=== PATIENT | female | born 1985 | race Caucasian/White ===

== ENCOUNTER → 2018-05-25 15:11 | Outpatient (CLI) | payer BC, SELFPAY ==
[2018-05-25 17:32] LABS: Progesterone Level 0.19 ng/mL (See Comment)
[2018-05-25 17:35] LABS: hCG Titer Quant., Serum < 1 mIU/mL (<9 non-preg)
[2018-05-25 17:38] LABS: Estradiol 46.3 pg/mL
[2018-05-27 10:18] LABS: DHEA Sulfate 66.7 ug/dL (84.8-378.0)
--- OUTSIDE RECORDS SUMMARY | 2018-07-20 14:25 | XMS RPT_ITS ---
:1985 Author Organization [facility] Support Name Relationship Address Phone RAMESH ALEJO JR Unavailable Unavailable + [facility] Unavailable [address] + [place] [address] ALEJORAMESH Unavailable [address] + [place] [address] [facility] Unavailable [address] + [facility] [place] [address] MELORAMESH Unavailable [address] + [facility] [place] [address] RAMESH ALEJO Unavailable [address] + [place] [address] RAMONITA LOZANO Unavailable COUSIN + RAMESH ALEJO JR Unavailable Unavailable + RAMONITA LOZANO Unavailable COUSIN + RAMESH ALEJO JR Unavailable Unavailable + RAMONITA LOZANO Unavailable COUSIN + RAMESH ALEJO JR Unavailable Unavailable + RAMONITA LOZANO Unavailable COUSIN + RAMESH ALEJO JR Unavailable Unavailable + RAMONITA LOZANO Unavailable COUSIN + RAMESH ALEJO JR Unavailable Unavailable + RAMONITA LOZANO Unavailable COUSIN + RAMESH ALEJO JR Unavailable Unavailable + RAMESH ALEJO Unavailable Unavailable + RAMESH IRVIN Unavailable Unavailable Unavailable Care Team Providers Name Role Phone ROME CLINTON DO Admitting Unavailable CLINTONROME GREGORY DO Attending Unavailable ROME CLINTON DO Primary Care Unavailable NO, DOCTOR ON Consulting Unavailable NO, DOCTOR ON Referring Unavailable ANH CHAVES PA-C Attending Unavailable GEORGE GIBSON Primary Care Unavailable Figueredo-Amos, [facility] Attending Unavailable VINCE(MV), ANH Attending Unavailable VINCE(MV), ANH Referring Unavailable VINCE(MV), ANH Attending Unavailable VICNE(MV), ANH Referring Unavailable VINCE(MV), ANH Attending Unavailable VINCE(MV), ANH Attending Unavailable VINCE(MV), ANH Referring Unavailable VINCE(MV), ANH Primary Care Unavailable VINCE(MV), ANH Referring Unavailable VINCE(MV), ANH Primary Care Unavailable VINCE(MV), ANH Attending Unavailable VINCE(MV), ANH Referring Unavailable VINCE(MV), ANH Primary Care Unavailable VINEC(MV), ANH Admitting Unavailable ANSELMO RENO Attending Unavailable VINCE(MV), ANH Referring Unavailable VINCE(MV), ANH Primary Care Unavailable PROBLEMS PROBLEMS DATE TYPE CONDITION / CODE ATTENDING STATUS SOURCE 05/31/2018 Unknown 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 Repository 03/15/2018 Working GENERALIZED ANXIETY ANASTACIO, Active [place] diagnosis DISORDER / [facility] F41.1(ICD-10) Hospital Repository 03/15/2018 Working OBESITY, ANASTACIO, Active [place] diagnosis UNSPECIFIED / [facility] E66.9(ICD-10) Hospital Repository 02/13/2018 Unknown Abnormal weight VINCE([facility]), Active [place] gain / [facility] R63.5(ICD-10) System Repository 02/13/2018 Unknown Body mass index VINCE([facility]), Active [place] (bmi) 60.0-69.9, [facility] adult ([facility]) / System Z68.44(ICD-10) Repository 02/13/2018 Unknown Obesity, VINCE([facility]), Active [place] unspecified / [facility] E66.9(ICD-10) System Repository 02/13/2018 Unknown Cardiac murmur, V[facility]CE([facility]), Active [place] unspecified / [facility] R01.1(ICD-10) System Repository 02/13/2018 Unknown Other fatigue / VINCE([facility]), Active [place] R53.83(ICD-10) [facility] System Repository 10/05/2017 Unknown Body mass index VINCE([facility]), Active [place] (bmi) 50-59.9 , [facility] adult ([facility]) / System Z68.43(ICD-10) Repository 09/13/2017 Unknown Generalized anxiety VINCE([facility]), Active [place] disorder / [facility] F41.1(ICD-10) System Repository PROCEDURES PROCEDURES No Procedure Records FoundRESULTS RESULTS TESTOSTERONE, SERUM TOTAL Collected: 05/25/2018 Status: F Source: [place] 3:13 PM [facility] REPOSITORY TYPE CODE TESTS RESULT OUT OF REFERENCE UNITS RANGE LAB L509.3000 ng/dL Testosterone Normal 23.29 Result Comment: NORMAL REFERENCE RANGES MALE AGE <50 123.06 - 813.86 ng/dL MALE AGE >50 89.98 - 780.10 ng/dL FEMALE PREMENOPAUSE AGE 21 - 60 9.01 - 47.94 ng/dL FEMALE POSTMENOPAUSE AGE 45 - 89 <7.00 - 45.62 ng/dL REFERENCE RANGE AND METHODOLOGY CHANGED 06/14/2017 Performed By: #### L509.3000, L509.4001 #### [facility] [place], [address] PROGESTERONE LEVEL Collected: 05/25/2018 Status: F Source: [place] 3:13 PM [facility] REPOSITORY TYPE CODE TESTS RESULT OUT OF REFERENCE UNITS RANGE LAB L509.4001 See Comment ng/mL Progesterone Normal 0.19 Result Comment: Progesterone Reference Table: UNITS Female: Follicular 0.15 - 1.40 ng/mL Luteal 3.34 - 25.56 ng/mL Mid-luteal 4.44 - 28.03 ng/mL Postmenopausal 0.0 - 0.73 ng/mL : 1st Trimester 11.22 - 90.00 ng/mL 2nd Trimester 25.55 - 89.40 ng/mL 3rd Trimester 48.40 -422.50 ng/mL Performed By: #### L509.3000, L509.4001 #### [facility] [address] [place] [place], [address] HCG TITER QUANT., Collected: 05/25/2018 Status: F Source: [place] 3:13 PM [facility] REPOSITORY TYPE CODE TESTS RESULT OUT OF RANGE REFERENCE UNITS LAB L700.8000 <9 non-preg mIU/mL Normal HCG < 1 QUANT. Performed By: #### L700.8000 #### [facility] [address] [place], [address] ESTRADIOL Collected: 05/25/2018 Status: F Source: [place] 3:13 PM [facility] REPOSITORY TYPE CODE TESTS RESULT OUT OF RANGE REFERENCE UNITS LAB L3300.1750 pg/mL Normal ESTRADIOL 46.3 Result Comment: NORMAL REFERENCE RANGES FEMALE FOLLICULAR 21.4 - 164.8 pg/mL MID-CYCLE PEAK 49.9 - 367.2 pg/mL LUTEAL 40.2 - 259.0 pg/mL POST-MENOPAUSAL ON MHT <11.0 - 462.1 pg/mL NOT ON MHT <11.0 - 58.3 pg/mL MALE <11.0 - 52.5 pg/mL NOTE: [facility] HAS CONFIRMED THE DRUG FULVETRANT (FASLODEX) MAY CAUSE FALSELY ELEVATED ESTRADIOL RESULTS WHEN USING THIS TEST METHOD. IF PATIENT IS TAKING FULVESTRANT AN ALTERNATIVE METHOD SHOULD BE USED TO DETERMINE ESTRADIOL CONCENTRATION. Performed By: #### L3300.1750 #### [facility] [address] [place], [address] DHEA SULFATE Collected: 05/25/2018 Status: F Source: [place] 3:13 PM [facility] REPOSITORY Order Comment: Has Patient had Radioactive Injection for X-ray?: N TYPE CODE TESTS RESULT OUT OF RANGE REFERENCE UNITS LAB L3300.1500 84.8-378.0 ug/dL Low DHEA SULF 66.7 4020 Result Comment: Performed at: - [facility] [address] [id number] Drainlayer: Dyu Leach PhD, Phone: [phone] Performed By: #### L3300.1500 #### [facility] (refer to report for specific site) refer to report for address and phone number CBC WITH DIFFERENTIAL Collected: 02/14/2018 Status: F Source: [place] 8:00 AM [facility] REPOSITORY TYPE CODE TESTS RESULT OUT OF REFERENCE UNITS RANGE LAB WBC(LOINC) 4.3-10.3 x10 3/uL WBC 4.3 LAB RBC(LOINC) 3.60-5.20 x10 6/uL RBC 4.51 LAB [id number](L 11.7-15.8 g/dL OINC) HGB 12.1 LAB 03642649(L 33.6-46.8 % OINC) HCT 37.5 LAB MCV2(LOINC 80.2-99.0 fL ) MCV 83.1 LAB MCH(LOINC) 27.5-32.3 pg Low MCH 26.8 LAB MCHC2(LOIN 30.7-35.5 g/dl C) MCHC 32.3 LAB RDW(LOINC) 11.5-14.5 % RDW 14.4 LAB [id number](L 150.0-400.0 x10 3/uL OINC) PLATELET 282.0 LAB POLY(LOINC % ) NEUTROPHIL 54.8 LAB POLY#(LOIN 2.4-6.6 10 3/uL C) Low ABSOLUTE NEUT 2.3 LAB LYMP(LOINC % ) LYMPHOCYTE 34.6 LAB LYMP#(LOIN 1.2-3.3 10 3/uL C) ABSOLUTE LYMPH 1.5 LAB MONO(LOINC % ) MONOCYTE 7.8 LAB MONO#(LOIN 0.2-0.6 10 3/uL C) ABSOLUTE MONO 0.3 LAB EOSO(LOINC % ) EOSINOPHIL 2.6 LAB EOSO#(LOIN 0.1-0.3 10 3/uL C) ABSOLUTE EOSIN 0.1 LAB BASO(LOINC % ) BASOPHIL 0.2 LAB BASO#(LOIN 0.0-0.1 10 3/uL C) ABSOLUTE BASO 0.0 Performed By: #### [id number] #### [place] [address] METABOLIC PANEL Collected: 02/14/2018 Status: F Source: [place] 8:00 [facility] REPOSITORY TYPE CODE TESTS RESULT OUT OF REFERENCE UNITS RANGE LAB [id number](L 135-147 mmol/L OINC) SODIUM 139 LAB [id number](L 3.6-5.1 mmol/L OINC) POTASSIUM 4.6 LAB [id number](L 96-109 mmol/L OINC) CHLORIDE 108 LAB [id number](L 22-30 mmol/L OINC) CO2 24 LAB 07776527(L 65-100 mg/dL OINC) GLUCOSE-SERUM 97 LAB 52702700(L 8-20 mg/dL OINC) BUN 12 LAB [id number](L 0.52-1.04 mg/dL OINC) CREATININE 0.65 LAB [id number](L 6.3-8.2 g/dL OINC) TOTAL PROTEIN 6.3 LAB [id number](L 3.5-5.0 g/dL OINC) Low ALBUMIN 3.4 LAB [id number](L 24-126 U/L OINC) ALK PHOS 85 LAB [id number](L 4-35 U/L OINC) ALT 19 Result Comment: New reference range for Alanine Aminotransferase (ALT) LAB 89675652(LOINC) 3-47 U/L AST 18 LAB 50015615(LOINC) 8.4-10.4 mg/dL CALCIUM 8.6 LAB [id number](LOINC) 0.2-1.6 mg/dL TOTAL BILIRUBIN 0.4 Performed By: #### [id number] #### [place] [address] LIPID PROFILE Collected: 02/14/2018 Status: F Source: [place] 8:00 [facility] REPOSITORY TYPE CODE TESTS RESULT OUT OF REFERENCE UNITS RANGE LAB [id number](L 0-150 mg/dL OINC) TRIGLYCERIDES 81 Result Comment: TRIGLYCERIDE REFERENCE RANGE Normal <150 mg/dL Borderline High 150-199 mg/dL High 200-499 mg/dL Very High >=500 mg/dL . LAB 89773935(LOINC) 0-200 mg/dL CHOLESTEROL 156 Result Comment: CHOLESTEROL REFERENCE RANGE Desirable <200 mg/dL Borderline 200-239 mg/dL High >240 mg/dL . LAB [id number](LOINC) 40.0-59.9 mg/dL HDL DIRECT 40.8 Result Comment: Interpretive data for HDL Cholesterol states: HDL <40 mg/dL is low and constitutes a coronary disease risk factor. HDL >60 mg/dL is a negative risk factor for coronary heart disease. . LAB LDLC3(LOINC) 0-100 mg/dL LDL-CALCULATED 99 Result Comment: LDL REFERENCE RANGE Optimal <100 mg/dl Near Optimal 100-129 mg/dL Borderline High 130-159 mg/dL High 160-189 mg/dL Very High >=190 mg/dL . LAB VLDL2(LOINC) <42 mg/dL VLDL-CALCULATED 16 Performed By: #### [id number] #### [place] [address] GFR Collected: 02/14/2018 Status: F Source: [place] 8:00 AM [facility] REPOSITORY TYPE CODE TESTS RESULT OUT OF RANGE REFERENCE UNITS LAB GFR1(LOINC) GFR >60 Result Comment: To estimate the GFR for Americans, multiply the result provided by 1.21. Population mean GFR = 107 ml/min/1.73 sq.m. for ages 30-39 yrs Five stages of CKD and GFR for each stage: Stage 1 GFR >=90 Stage 2 GFR 60-89 Stage 3 GFR 30-59 Stage 4 GFR 15-29 Stage 5 GFR <15 Performed By: #### GFR1 #### [place] [address] FREE T4 Collected: 02/14/2018 Status: F Source: [place] 8:00 [facility] REPOSITORY TYPE CODE TESTS RESULT OUT OF RANGE REFERENCE UNITS LAB [id number](LO 0.78-2.19 ng/dL INC) FREE T4 1.00 Performed By: #### [id number] #### [place] [address] FREE T3 Collected: 02/14/2018 Status: F Source: [place] 8:00 [facility] REPOSITORY TYPE CODE TESTS RESULT OUT OF RANGE REFERENCE UNITS LAB [id number](LO 2.8-5.3 pg/mL INC) FREE T3 3.3 Performed By: #### [id number] #### [place] [address] TSH Collected: 02/14/2018 Status: F Source: [place] 8:00 [facility] REPOSITORY TYPE CODE TESTS RESULT OUT OF RANGE REFERENCE UNITS LAB [id number](LO 0.465-4.680 uIU/mL INC) TSH 1.330 Performed By: #### [id number] #### [address] [address] EMERGENCY DEPARTMENT Observed: 09/18/2017 Status: F Source: [facility] SUMMARY 8:22 AM [facility] EMERGENCY DEPARTMENT SUMMARY NAME NUMBER SEX AGE ADMIT DISC TYPE MED.RECORD# MELO JACKMAN [id number] F 32 09/02/17 09/02/17 KyrieRVipul [id number] ROOM:ER-E DATE OF :1985 PHYSICIAN NO.:[id number] PHYSICIAN NAME:Rome Clinton D.O. PHYSICIAN:NO DOCTOR ON ADMISSION SHEET CHIEF COMPLAINT: Fever. HISTORY OF PRESENT ILLNESS: This 32-year-old white female states that she woke up this morning with a fever, headache, nausea, with fevers and chills as well as diffuse body aches. She admits to some rhinorrhea, occasional cough. She denies any rash. She denies any shortness of breath. Patient is concerned that she may have been exposed to influenza. She states that her daughter recently had influenza as well. PAST MEDICAL HISTORY: Denies. PAST SURGICAL HISTORY: Includes x2. MEDICATIONS: Medication list includes Tylenol. ALLERGIES: No known drug allergies. SOCIAL HISTORY: She denies any use of tobacco, alcohol or drugs. PHYSICAL EXAMINATION: Temperature is 101.2, pulse 101, respiratory rate 20, blood pressure is 137/91, pulse ox is 96% on room air. General: The patient is alert, awake, oriented, appears to be in no acute distress, nontoxic appearing, obese. HEENT examination does reveal some clear rhinorrhea. Posterior oropharynx is without erythema or exudates. Neck is supple without meningismus. Tympanic membrane are unremarkable. There is no lymphadenopathy. Heart: Slightly tachycardic, regular without murmurs, heaves, rubs or thrills. Lungs are clear to auscultation bilaterally. Respirations are easy and symmetrical without retractions or tachypnea. Abdomen is soft, benign, without rebound, rigidity, guarding noted. Skin is warm, soft, dry, intact without rash. No focal neurological deficits are appreciated. No evidence of meningitis on exam. DIAGNOSTIC DATA: A rapid influenza was obtained. EMERGENCY DEPARTMENT COURSE AND TREATMENT: She was treated with 600 mg of ibuprofen orally during the course of the ED visit. The rapid influenza was negative. Patient was subsequently discharged home in stable and satisfactory condition. DIAGNOSIS: Viral syndrome. PLAN/DISPOSITION: The patient was referred to follow up with [facility] in [place] and provided the number for followup. I recommended followup in 3 to 4 days. She was subsequently discharged home in stable and satisfactory condition. D: Rome Clinton DO TD: 21:23 JOB #: [id number] Transcribed by: reginaldo 09/03/2017 09:24 Electronically signed by: Rome Clinton D.O. 09/18/17 08:22 Observed: 09/02/2017 Status: F Source: [facility] INFLUENZA VIRUS RAPID 7:[address] [facility] A/B REPOSITORY INFLUENZA A NEGATIVE INFLUENZA B NEGATIVE INTERNAL NEG QC PASS INTERNAL POS QC PASS EXTERNAL QC DONE? YES A NEGATIVE TEST RESULT DOES NOT EXCLUDE INFECTION WITH INFLUENZA A OR B. THEREFORE, THE RESULTS OBTAINED FROM THIS FLU TEST SHOULD BE USED IN CONJUCTION WITH CLINICAL FINDINGS TO MAKE AN ACCURATE DIAGNOSIS. INDIVIDUALS WHO HAVE RECEIVED NASALLY ADMINISTERED INFLUENZA A VACCINE MAY TEST POSITIVE IN COMMERCIALLY AVAILABLE INFLUENZA RAPID DIAGNOSTIC TESTS FOR UP TO THREE DAYS. Performed By: #### [id number] #### [facility],[address] [place] [address] ALLERGIES ALLERGIES DATE TYPE / CODE NAME / CODE REACTION SEVERITY SOURCE 10/21/2016 Drug No Known UNKNOWN [place] Allergy/284593658(S [facility] [address]([facility]NORM[facility] Hospital Repository Miscellaneous No Known Drug Moderate [facility] Allergy/154847215(S Allergies ([facility] NOM[facility]) Modifier) Hospital (Qualifier Repository Value) ENCOUNTERS ENCOUNTERS ADMIT/DISCHARGE ACCOUNT NUMBER ADMITTING ENCOUNTER LOCATION SOURCE CLASS 05/31/2018/05/31/20 [id number] Ambulatory Buildin [place] [phone] Repository 05/25/2018 [id number] Ambulatory [facility] ding:WOBLAB Repository 02/21/2018/02/22/20 [id number] Ambulatory CHBuilding:C [place] 18 [facility] Repository 02/14/2018/02/15/20 [id number] [facility]IN[facility]), Ambulatory Building:[facility] 18 [facility] Repository 02/14/2018/02/15/20 [id number] Ambulatory Buildin [place] [address] [facility] Repository 02/13/2018/02/14/20 [id number] Ambulatory Buildin [place] [address] [facility] Repository 11/10/2017/11/11/19 [id number] Ambulatory Buildin [place] [address] [facility] Repository 10/05/2017/10/06/19 [id number] Ambulatory Buildin [place] [address] [facility] Repository 09/13/2017/09/14/19 [id number] Ambulatory Buildin [place] [address] [facility] Repository 09/02/2017/09/03/19 [id number] OZ, Emergency Buildin[address] [place] [address] Room: ERBed: [facility] Repository PAYERS PAYERS ENCOUNTER GUARANTOR PAYER SUBSCRIBER SOURCE 05/31/2018 COSTA AUGUSTINA Primary [place] A[place]INA Teresa YODERDOB: Insurance:ANTHEMPolicy YODERDOB: HealthCare [id number] Number: [id number] [address] [id number] [address] Repository [place], [place] Date: , [place] [address]Cyu: [phone]: [phone] (HP) (HP) () 05/25/2018 [place] Primary RAMESH [facility] Insurance:ANTHEMPolicy [id number] [facility] ROUTE Number: Hospital 83[facility] [id number] Repository [address]Tzp: [phone]) Date:2369-30-87[phone] (HP) [place], [place] [address]MR: 05/25/2018 Secondary NOT GIVENUNK [place] Insurance:SELF PAY [facility] Hospital Number: Effective Repository Date:2018-05-25 02/21/2018 COSTA AUGUSTINA Primary Insurance:[address] ANTHEMPolicy JRDOB: [facility] ROUTE Number: [id number] Hospital [place], [place] [id number] [address] Repository [address]Rtz: [phone] Date:[address], [place] [phone] () [id number] [place] [address]Tzs: [phone]: [phone] (HP) 02/14/2018 COSTA AUGUSTINA Primary [place]INA Teresa YODERDOB: Insurance:ANTHEMPolicy YODERDOB: HealthCare Number: [id number] [address] [id number] [address] Repository [place], [place] Date: [place], [place] [address]Bsv: [phone]: [phone] (HP) (HP) (WP) 02/14/2018 COSTA AUGUSTINA Primary COSTA AUGUSTINA Teresa YODERDOB: Insurance:ANTHEMPolicy YODERDOB: HealthCare [id number] Number: [id number] [address] [id number] [address] Repository [place], [place] Date: [place], [place] [address]Fbq: [phone]: [phone] (HP) (HP) (WP) 02/13/2018 COSTA AUGUSTINA Primary [place] A[place]INA Teresa YODERDOB: Insurance:ANTHEMPolicy YODERDOB: HealthCare Number: [id number] [address] [id number] [address] Repository [place], [place] Date: [place], [place] [address]Bbi: [phone]: [phone] (HP) (HP) (WP) 11/10/2017 COSTA AUGUSTINA Primary [place] Teresa YODERDOB: Insurance:ANTHEMPolicy YODERDOB: HealthCare Number: [id number] [address] [id number] [address] Repository [place], [place] Date: [place], [place] [address]Zxv: [phone]: [phone] (HP) (HP) (WP) 10/05/2017 COSTA AUGUSTINA Primary [place] AUG[place]INA Teresa YODERDOB: Insurance:ANTHEMPolicy YODERDOB: HealthCare Number: [id number] [address] [id number] [address] Repository [place], [place] Date: [place] [address]Atw: [phone]: [phone] (HP) (HP) (WP) 09/13/2017 COSTA AUGUSTINA Primary COSTA AUGUSTINA Teresa YODERDOB: Insurance:ANTHEMPolicy YODERDOB: HealthCare Number: [id number] [address] [id number] [address] Repository [place], [place] Date: [place], [place] [address]Nbm: [phone]: [phone] (HP) (HP) (WP) 09/02/2017 JR Carmine GarzaB: Insurance:MUSTAPHA ALEJODOB: [facility] [id number] [facility] [employer] [id number] [facility] OUTPATIENTPolicy [address] [place] [address] Repository [place] Number: [place] [id number]: [id number] Date:Plan Name:B2 ()
== END ==
PROVIDERS: Visit Provider Obstetrics & Gynecology
DX: N92.6 Irregular menstruation, unspecified (principal)
CPT/HCPCS: 36415; 82627; 82670; 84144; 84403; 84702; 82626

== ENCOUNTER → 2018-06-25 15:33 | Outpatient (CLI) | payer BC, SELFPAY ==
[2018-06-25 17:44] LABS: Progesterone Level 3.75 ng/mL (See Comment)
== END ==
PROVIDERS: Visit Provider Obstetrics & Gynecology
DX: N91.2 Amenorrhea, unspecified (principal)
CPT/HCPCS: 36415; 84144

== ENCOUNTER → 2018-07-02 07:54 | Outpatient (CLI) | payer BC, SELFPAY ==
[2015-08-17 08:54] VITALS: BMI 63.1
[2018-07-02 09:18] LABS: Hemoglobin A1c 5.6 % (4.2-6.3)
[2018-07-02 09:47] LABS: Estradiol 46.3 pg/mL; Glucose 96 mg/dL (74-106); Prolactin 9.3 ng/mL; T4 Free Direct 0.93 ng/dL (0.76-1.46); Thyroid Stim Hormone (TSH) 2.21 uIU/mL (0.358-3.74)
[2018-07-02 10:30] LABS: Insulin 32.6 mU/L (2.6-37.6); Vitamin D,25 Hydroxy 23.4 ng/mL (29.95-100.01)
[2018-07-03 08:42] LABS: Sex Hormone-binding Globulin 88.2 nmol/L (24.6-122.0)
[2018-07-05 18:20] LABS: ALB/GLOB Ratio 0.8 RATIO (0.9-2.4); AST(SGOT) 13 U/L (15-37); Alanine Aminotransfer ALT/SGPT 24 U/L (13-56); Albumin, Serum 3.3 g/dL (3.2-5.0); Alkaline Phosphatase 86 U/L (45-117); Anion Gap 9 (5-15); BUN 13 mg/dL (7-18); BUN/Creat Ratio 16.6 RATIO (10-20); Calcium,Total 8.4 mg/dL (8.5-10.1); Chloride 106 mmol/L (98-107); Creatinine, Serum 0.78 mg/dL (0.55-1.02); EST Glomerular Filtration Rate 91 mL/min (>60); Est Glom Filt Rate - Afr Amer 110 mL/min (>60); GGTP 10 U/L (5-55); Globulin 3.9 g/dL (2.2-4.2); Glucose 91 mg/dL (74-106); Potassium 3.8 mmol/L (3.5-5.1); Protein, Total 7.2 g/dL (6.4-8.2); Sodium Level 141 mmol/L (136-145)
== END ==
PROVIDERS: Referring Provider Obstetrics & Gynecology; Visit Provider Obstetrics & Gynecology
DX: N92.6 Irregular menstruation, unspecified (principal); Z68.44 Body mass index [BMI] 60.0-69.9, adult
CPT/HCPCS: 36415; 80053; 82306; 82670; 82947; 82977; 83001; 83036; 83525; 84146; 84270; 84403; 84439; 84443; 84481

== ENCOUNTER → 2018-07-04 06:42 | Outpatient (CLI) | payer BC, SELFPAY ==
[2015-08-17 08:54] VITALS: BMI 63.1
[2018-07-04 08:31] LABS: Glucose 75GTT - Fasting 110 mg/dL (70-99)
[2018-07-04 08:53] LABS: Insulin 75GTT - Fasting 41.9 mU/L (2.6-37.6)
[2018-07-04 09:05] LABS: Glucose 75GTT - 60 minutes 117 mg/dL (100-160)
[2018-07-04 09:08] LABS: Glucose 75GTT - 30 minutes 134 mg/dL (100-160)
[2018-07-04 09:18] LABS: Insulin 75GTT - 60 min 168.1 mU/L (Not Estab)
[2018-07-04 09:32] LABS: Glucose 75GTT - 120 minutes 93 mg/dL (70-140)
== END ==
PROVIDERS: Referring Provider Obstetrics & Gynecology; Visit Provider Obstetrics & Gynecology
DX: N92.6 Irregular menstruation, unspecified (principal); Z68.44 Body mass index [BMI] 60.0-69.9, adult
CPT/HCPCS: 36415; 82533; 82951; 82952; 83525

== ENCOUNTER → 2018-07-20 13:39 | Outpatient (CLI) | payer BC, SELFPAY ==
[2018-07-20 14:05] LABS: Progesterone Level 7.95 ng/mL (See Comment)
== END ==
PROVIDERS: Visit Provider Obstetrics & Gynecology
DX: N92.6 Irregular menstruation, unspecified (principal)
CPT/HCPCS: 84144

== ENCOUNTER → 2018-08-28 16:22 | Outpatient (CLI) | payer BC, SELFPAY ==
[2015-08-17 08:54] VITALS: BMI 63.1
[2018-08-28 18:14] LABS: Estradiol 51.8 pg/mL
[2018-08-28 18:21] LABS: Progesterone Level 0.32 ng/mL (See Comment)
[2018-08-30 06:08] LABS: DHEA Sulfate 186.8 ug/dL (84.8-378.0)
[2018-08-30 10:45] LABS: Sex Hormone-binding Globulin 60.7 nmol/L (24.6-122.0)
== END ==
PROVIDERS: Referring Provider Obstetrics & Gynecology; Visit Provider Obstetrics & Gynecology
DX: N92.6 Irregular menstruation, unspecified (principal)
CPT/HCPCS: 36415; 82627; 82670; 84144; 84270; 84403; 82626

== ENCOUNTER → 2018-08-31 11:20 | Outpatient (CLI) | payer BC, SELFPAY ==
[2015-08-17 08:54] VITALS: BMI 63.1
--- NOTE | 2018-08-31 11:27 | EKG12_ITS ---
Test Reason : PRE MEDS Blood Pressure : / mmHG Vent. Rate : 072 BPM Atrial Rate : 072 BPM P-R Int : 184 ms QRS Dur : 090 ms QT Int : 388 ms P-R-T Axes : -02 -09 002 degrees QTc Int : 424 ms Normal sinus rhythm Minimal voltage criteria for LVH, may be normal variant Borderline ECG Confirmed by STEFFI AGARWAL, CHIQUIS ([id number]), industrial editor DALY DOUGLAS ([id number]) on 09/04/2018 9:45:53 AM Referred By: Shweta Alatorre Confirmed By:CHIQUIS KAPADIA MD
== END ==
PROVIDERS: Referring Provider Obstetrics & Gynecology; Visit Provider Obstetrics & Gynecology
DX: I10 Essential (primary) hypertension (principal); Z13.6 Encounter for screening for cardiovascular disorders
CPT/HCPCS: 93005

== ENCOUNTER → 2018-10-09 14:44 | Outpatient (CLI) | payer BC, SELFPAY ==
[2018-10-09 17:55] LABS: Vitamin D,25 Hydroxy 14.8 ng/mL (29.95-100.01)
== END ==
PROVIDERS: Visit Provider Obstetrics & Gynecology
DX: E55.9 Vitamin D deficiency, unspecified (principal)
CPT/HCPCS: 36415; 82306

== ENCOUNTER → 2019-07-16 11:34 | Outpatient (CLI) | payer BC, SELFPAY ==
[2015-08-17 08:54] VITALS: BMI 63.1
[2019-07-16 14:10] LABS: Progesterone Level 5.13 ng/mL (See Comment)
[2019-07-18 15:17] LABS: HPV APTIMA, High Risk Negative (Negative)
== END ==
PROVIDERS: Referring Provider Obstetrics & Gynecology; Visit Provider Obstetrics & Gynecology
DX: N94.3 Premenstrual tension syndrome (principal); Z12.4 Encounter for screening for malignant neoplasm of cervix
CPT/HCPCS: 36415; 84144; 87624; 88175; G0145

== ENCOUNTER 2021-07-28 14:40 | Outpatient (CLI) | payer OTHER, SELFPAY ==
[2021-07-28 16:11] LABS: Prolactin 8.1 ng/mL
[2021-07-28 16:18] LABS: Progesterone Level 10.15 ng/mL (See Comment); Vitamin B12 564 pg/mL (211-911)
[2021-07-30 15:21] LABS: Sex Hormone-binding Globulin 56.7 nmol/L (24.6-122.0)
== END 2021-07-28 23:59 | disposition short-term general hospital (02) ==
PROVIDERS: Visit Provider Obstetrics & Gynecology
DX: N92.6 Irregular menstruation, unspecified (principal)
CPT/HCPCS: 36415; 82607; 82627; 84144; 84146; 84270; 84403; 82626